=== PATIENT | female | born 1970 | race Caucasian/White ===

== ENCOUNTER 2019-12-18 10:34 | Emergency (ER) | payer BC ==
[2019-12-18 11:57] LABS: Absolute Lymphocytes (CBC) 2.5 K/uL (0.7-4.9); Basophils % 0.9 % (0-1.3); Hematocrit 32.3 % (36.0-45.0); Lymphocytes % 20.3 % (15.3-44.8); MPV 11.2 fL (7.6-11.3); RBC Red Blood Cell Count 3.81 M/uL (3.86-4.86)
[2019-12-18 12:07] LABS: ALT/SGPT 37 U/L (12-78); AST/SGOT 20 U/L (15-37); Albumin 3.1 g/dL (3.4-5.0); Alkaline Phosphatase 110 U/L (45-117); BUN Blood Urea Nitrogen 8 mg/dL (7-18); Bicarbonate 30 mmol/L (21-32); Bilirubin Total 0.4 mg/dL (0.2-1.0); Glucose Level 103 mg/dL (74-106); Potassium 3.6 mmol/L (3.5-5.1); Protein, Total 7.3 g/dL (6.4-8.2); Sodium Level 135 mmol/L (136-145)
--- NOTE | 2019-12-18 12:42 | RAD REPORT ---
EXAM DESCRIPTION: CTSpine Lumbar W/Cont12/18/2019 12:16 pm CLINICAL HISTORY: Back injury with back pain and radiculopathy status post fall from a ladder 7 feet COMPARISON: None TECHNIQUE: Computed axial tomography lumbar spine was obtained with coronal and sagittal reconstruct ion. All CT scans are performed using dose optimization technique as appropriate and may include automated exposure control or mA/KV adjustment according to patient size. FINDINGS: Posterior fusion involves L4 and L5 by pedicular screws united by rods. The alignment of t he lumbar spine. A bone plug has been placed at L5-S1. Laminectomy. Air and fluid is present within the posterior subcutaneous tissues of L5 and S1 it is not entirely in cluded in the field of view as the very posterior soft tissue is not imaged. It measures approximatel y 5 centimeters. Fluid is present within the posterior musculature at this level. It measures approxi mately 4 centimeters and abuts the posterior thecal sac No gross abnormality is seen involving the remainder of the lumbar spine IMPRESSION: Postsurgical changes involving L5 and S1 4 centimeter fluid collection posterior musculature L5 may represent a hematoma or pseudomeningocele. 5 centimeter fluid collection within the posterior subcutaneous tissues containing air may represent hematoma or abscess
--- NOTE | 2019-12-18 12:42 | RAD REPORT ---
EXAM DESCRIPTION: CT - Head Brain Wo Cont - 12/18/2019 12:15 pm CLINICAL HISTORY: Headache COMPARISON: None TECHNIQUE: Computed axial tomography of the head was obtained. IV contrast was not requested. All CT scans are performed using dose optimization technique as appropriate and may include automated exposure control or mA/KV adjustment according to patient size. FINDINGS: An intracranial bleed is not seen . The ventricles are normal in caliber. No extra-axial fluid collection is noted. Fluid within the sinuses/ mastoids is not seen. IMPRESSION: No acute intracranial abnormality is seen. If patient's symptoms persist MRI of the bra in would be recommended.
[2019-12-18] MEDS ORDERED: MORPHINE 4 MG/ML SYR ONE ×2 (12:52→14:43)
--- NOTE | 2019-12-18 14:15 | ER ---
Nurse's Notes [facility] Name: Ariane Hodgson Age: 49 yrs Sex: Female : 1970 Arrival Date: 12/18/2019 Time: 10:38 Bed 13 Private MD: Owen Palma Diagnosis: Low back pain-post surgical pain Presentation: 12/17 10:48 Chief complaint: Patient states: Recent multiple surgeries to back since July. Drained ll1 300 ml of fluid off her spine on Tuesday. Severe back pains, MOSS, stiff neck since Tuesday morning. Arms felt weak when laying down. Coronavirus screen: Client denies travel out of the [place] in the last 14 days. At this time, the client does not indicate any symptoms associated with coronavirus-19. Ebola Screen: Patient denies travel to an Ebola-affected area in the 21 days before illness onset. Initial Sepsis Screen: Does the patient meet any 2 criteria? No. Patient's initial sepsis screen is negative. Does the patient have a suspected source of infection? Yes: Other: back pain, MOSS. Risk Assessment: Do you want to hurt yourself or someone else? Patient reports no desire to harm self or others. Onset of symptoms was December 17, 2019. 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 - Social history:: Smoking status: Patient reports the use of cigarette tobacco products, smokes one-half pack cigarettes per day. Screenin:10 Abuse screen: Denies threats or abuse. Nutritional screening: No deficits noted. vg1 Tuberculosis screening: No symptoms or risk factors identified. Fall Risk No fall in past 12 months (0 pts). No secondary diagnosis (0 pts). IV access (20 points). Ambulatory Aid- None/Bed Rest/Nurse Assist (0 pts). Gait- Weak (10 pts.). Mental Status- Oriented to own ability (0 pts). Total Johnson Fall Scale indicates Low Risk Score (25-44 pts). Fall prevention measures have been instituted. Side Rails Up X 2. Assessment: 11:08 General: Appears uncomfortable, Behavior is calm, cooperative. Pain: Complains of pain vg1 in back of neck and back. Neuro: Level of Consciousness is awake, alert, obeys commands, Oriented to person, place, time, situation. Cardiovascular: Capillary refill < 3 seconds. Respiratory: Airway is patent Respiratory effort is even, unlabored. GI:. Derm: Skin is pink, warm \T\ dry. 12:05 Reassessment: Pt left to CT via bed. vg1 12:24 Reassessment: Pt back from CT. Bed low and locked with call light at side. Pt states vg1 would like something for pain now. Rates pain 10/10. 13:12 Reassessment: Pt states medication did not work. Rates pain 10/10. Patient grimacing vg1 and moving legs due to pain. 14:00 Reassessment: Erlin BLACK at Pt bedside discussing disposition and instructions. vg1 Vital Signs: 10:48 BP 103 / 64; Pulse 85; Resp 18; Temp 97.7(O); Pulse Ox 94% ; Weight 104.33 kg; Height 5 ll1 ft. 4 in. (162.56 cm); Pain 9/10; 12:49 BP 110 / 71; Pulse 76; Pulse Ox 96% on R/A; Pain 10/10; vg1 10:48 Body Mass Index 39.48 (104.33 kg, 162.56 cm) ll1 ED Course: 10:38 Patient arrived in ED. mr 10:39 Owen Palma is Private Physician. mr 10:51 Triage completed. ll1 10:53 Arm band placed on Patient placed in an exam room, on a stretcher. ll1 10:56 Erlin Duque NP is PHCP. pm1 10:56 Alejo Briggs MD is Attending Physician. pm1 11:01 Nuris Collins, SHANTEL is Primary Nurse. sv 11:30 Inserted saline lock: 20 gauge in right antecubital area, using aseptic technique. vg1 11:33 Lactate Sent, Procalcitonin, CMP, CBC with Diff Sent. vg1 11:35 Blood Culture Adult (2) Sent. vg1 12:15 CT Head Brain wo Cont In Process Unspecified. EDMS 12:16 Spine Lumbar W/Cont In Process Unspecified. EDMS 13:31 Patient has correct armband on for positive identification. Bed in low position. Call vg1 light in reach. Side rails up X2. Adult w/ patient. Door closed. Warm blanket given. Pillow given. 14:40 No provider procedures requiring assistance completed. IV discontinued, intact, vg1 bleeding controlled, No redness/swelling at site. Pressure dressing applied. Administered Medications: 13:06 Drug: morphine 4 mg {Note: rass2.} Route: IVP; Site: right antecubital; vg1 13:11 Follow up: Response: No adverse reaction; No change in condition; RASS: Agitated (+2) vg1 Outcome: 14:14 Discharge ordered by MD. pm1 14:45 Discharged to home via wheelchair, with significant other. vg1 14:45 Condition: good 14:45 Discharge instructions given to patient, family, Instructed on discharge instructions, follow up and referral plans. medication usage, Demonstrated understanding of instructions, follow-up care, medications, Prescriptions given X 2. 14:51 Patient left the ED. vg1 Signatures: Dispatcher [employer] EDMS Ewa Samson RN RN sv Rivera, Mary mr Marinas, Patrick, CHIEF CHEMIST CHIEF CHEMIST pm1 Nuris Collins RN RN vg1 Nichole San RN RN ll1 Corrections: (The following items were deleted from the chart) 11:44 11:41 BLOOD CULTURE*+BA.LAB.BRZ drawn and sent. vg1 vg1 11:44 11:42 LACTATE+C.LAB.BRZ drawn and sent. vg1 vg1 11:44 11:42 Procalcitonin+C.LAB.BRZ drawn and sent. vg1 vg1 11:44 11:42 COMPREHENSIVE METABOLIC PANEL+C.LAB.BRZ drawn and sent. vg1 vg1 11:44 11:42 CBC+H.LAB.BRZ drawn and sent. vg1 vg1 11:44 11:42 Inserted saline lock: 20 gauge in right antecubital area, using aseptic vg1 technique. vg1 13:30 12:08 Abuse screen: Denies threats or abuse. vg1 vg1 13:30 12:08 Nutritional screening: No deficits noted. vg1 vg1 13:30 12:08 Tuberculosis screening: No symptoms or risk factors identified. vg1 vg1 13:30 12:08 Fall Risk No fall in past 12 months (0 pts). No secondary diagnosis (0 pts). IV vg1 access (20 points). Ambulatory Aid- None/Bed Rest/Nurse Assist (0 pts). Gait- Weak (10 pts.). Mental Status- Oriented to own ability (0 pts). Total Johnson Fall Scale indicates Low Risk Score (25-44 pts). Fall prevention measures have been instituted. Side Rails Up X 2 vg1
--- NOTE | 2019-12-18 14:15 | EDPHYS ---
Physician Documentation [facility] Name: Ariane Hodgson Age: 49 yrs Sex: Female : 1970 Arrival Date: 12/18/2019 Time: 10:38 Bed 13 Private MD: Owen Palma ED Physician Alejo Briggs HPI: 12/17 11:09 This 49 yrs old Female presents to ER via Wheelchair with complaints of Back pm1 Pain. 11:09 The patient presents with pain Pain. The symptoms are located in the low back. Onset: pm1 The symptoms/episode began/occurred Patient with chronic back pain who has had multiple surgeries to her lower back. On Tuesday she had fluid drained from her back by Dr. Giorgio Tsai. On Tuesday she reported having some neck pain and decreased bilateral arm strength. She was sent to the ER after contacting her doctor today for evaluation. Associated signs and symptoms: Pertinent negatives: fever, incontinence, numbness, tingling. Modifying factors: the patient symptoms are aggravated by movement, walking. Severity of symptoms: in the emergency department the symptoms are actually worse. The patient has been recently seen by a physician: Dr. Giorgio Tsai. 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 - Social history:: Smoking status: Patient reports the use of cigarette tobacco products, smokes one-half pack cigarettes per day. ROS: 11:09 Constitutional: Negative for fever, chills, and weight loss. pm1 11:09 Cardiovascular: Negative for chest pain, palpitations, and edema, Respiratory: Negative for shortness of breath, cough, wheezing, and pleuritic chest pain, Abdomen/GI: Negative for abdominal pain, nausea, vomiting, diarrhea, and constipation. 11:09 MS/Extremity: Negative for injury and deformity, Skin: Negative for injury, rash, and discoloration. 11:09 Neck: Positive for pain with movement. 11:09 Back: Positive for pain at rest, pain with movement, of the lumbar area. 11:09 Neuro: Positive for headache, Weakness to upper bilateral extermities, Negative for numbness, tingling. Exam: 11:09 Constitutional: This is a well developed, well nourished patient who is awake, alert, pm1 and in no acute distress. Head/Face: Normocephalic, atraumatic. 11:09 Neck: External neck: is normal, no tenderness, ROM/movement: no acute changes, Meningeal signs: are not present, Kernig's sign is negative, Brudzinski's sign is negative. 11:09 Cardiovascular: Exam negative for acute changes, Rate: normal, Rhythm: regular, Pulses: no pulse deficits are appreciated, Edema: is not appreciated. 11:09 Respiratory: Exam negative for acute changes, respiratory distress, shortness of breath. 11:09 Abdomen/GI: Inspection: abdomen appears normal, Palpation: abdomen is soft and non-tender, in all quadrants, mass, is not appreciated, rebound tenderness, is not appreciated. 11:09 Back: pain, that is mild, of the lumbar area and sacrum, vertebral tenderness, is appreciated at lumbar spine and sacrum. 11:09 Skin: Appearance: surgical site without any signs of infection or cellulitis. 11:09 Neuro: Exam negative for acute changes, Orientation: is normal, Mentation: is normal, Motor: moves all fours, strength is 5/5 in all extremities, strength is 5/5 in the right hand, left hand, right arm and left arm, Sensation: is normal, no obvious gross deficits. Vital Signs: 10:48 BP 103 / 64; Pulse 85; Resp 18; Temp 97.7(O); Pulse Ox 94% ; Weight 104.33 kg; Height 5 ll1 ft. 4 in. (162.56 cm); Pain 9/10; 12:49 BP 110 / 71; Pulse 76; Pulse Ox 96% on R/A; Pain 10/10; vg1 10:48 Body Mass Index 39.48 (104.33 kg, 162.56 cm) ll1 MDM: 10:56 Patient medically screened. pm1 11:12 ED course: Patient refused pain medications in the ER because she just took hydrocodone pm1 at 1000 today. 13:50 Physician consultation: Giorgio Tsai was called at 13:50, was contacted at 13:50, pm1 regarding consult, patient's condition, and will see patient in office, in 2-3 days, would like medications started, He wanted to rule out stroke and meningitis. I discussed with him the patient presentation, lab findings, and CT scan. I offered to perform a lumbar puncture. He did not want to perform one at this time. He wants to put her on antibiotics and will reevaluate her. he wants Bactrim and gram-negative abx. Will see the patient in two days in his office. . 14:13 Data reviewed: vital signs. Data interpreted: Pulse oximetry: on room air is 96 %. pm1 Interpretation: normal. Counseling: I had a detailed discussion with the patient and/or guardian regarding: the historical points, exam findings, and any diagnostic results supporting the discharge/admit diagnosis, lab results, radiology results, the need for outpatient follow up, to return to the emergency department if symptoms worsen or persist or if there are any questions or concerns that arise at home. 12/17 11:08 Order name: CBC with Diff; Complete Time: 12:07 pm1 12/17 11:08 Order name: CMP; Complete Time: 12:19 pm1 12/17 11:08 Order name: Procalcitonin; Complete Time: 15:39 pm1 12/17 11:08 Order name: Lactate; Complete Time: 12:19 pm1 12/17 11:08 Order name: Blood Culture Adult (2) pm1 12/17 12:40 Order name: CREATININE WHOLE BLOOD; Complete Time: 12:48 EDMS 12/17 11:08 Order name: CT Head Brain wo Cont; Complete Time: 12:48 pm1 12/17 11:08 Order name: IV Saline Lock; Complete Time: 11:41 pm1 12/17 11:15 Order name: Spine Lumbar W/Cont; Complete Time: 12:48 EDMS Administered Medications: 13:06 Drug: morphine 4 mg {Note: rass2.} Route: IVP; Site: right antecubital; vg1 13:11 Follow up: Response: No adverse reaction; No change in condition; RASS: Agitated (+2) vg1 Disposition: 16:44 Co-signature as Attending Physician, Alejo Briggs MD. rn Disposition: 12/18/19 14:14 Discharged to Home. Impression: Low back pain - post surgical pain. - Condition is Stable. - Discharge Instructions: Back Pain, Adult. - Prescriptions for Levaquin 500 mg Oral Tablet - take 1 tablet by ORAL route once daily for 10 days; 10 tablet. Bactrim DS 800- 160 mg Oral Tablet - take 1 tablet by ORAL route every 12 hours for 10 days; 20 tablet. - Medication Reconciliation Form, Thank You Letter, Antibiotic Education, Prescription Opioid Use form. - Follow up: Emergency Department; When: As needed; Reason: Worsening of condition. Follow up: Private Physician; When: 2 - 3 days; Reason: Recheck today's complaints, Continuance of care, Re-evaluation by your physician. - Problem is new. - Symptoms have improved. - Notes: Follow up with Dr. Tsai in his office on Signatures: Dispatcher [employer] EDMS Alejo Briggs, MD AGUIRRE rn Erlin uDque, STATISTICAL SECRETARY STATISTICAL SECRETARY pm1 Nuris Collins RN RN vg1 Nichole San RN RN ll1 Corrections: (The following items were deleted from the chart) 14:15 14:14 12/18/2019 14:14 Discharged to Home. Impression: Low back pain. Condition is pm1 Stable. Forms are Medication Reconciliation Form, Thank You Letter, Antibiotic Education, Prescription Opioid Use. Follow up: Emergency Department; When: As needed; Reason: Worsening of condition. Follow up: Private Physician; When: 2 - 3 days; Reason: Recheck today's complaints, Continuance of care, Re-evaluation by your physician. Problem is new. Symptoms have improved. pm1 14:51 14:15 12/18/2019 14:14 Discharged to Home. Impression: Low back pain - post surgical vg1 pain. Condition is Stable. Forms are Medication Reconciliation Form, Thank You Letter, Antibiotic Education, Prescription Opioid Use. Follow up: Emergency Department; When: As needed; Reason: Worsening of condition. Follow up: Private Physician; When: 2 - 3 days; Reason: Recheck today's complaints, Continuance of care, Re-evaluation by your physician. Problem is new. Symptoms have improved. pm1
[2019-12-18] MEDS ORDERED: SMZ./TMP. 800/160 MG TABLET ONE (14:43)
[2019-12-18] MEDS ORDERED: levoFLOXacin 500 MG TAB ONE (14:43)
[2019-12-18 15:24] VITALS: TEMP 97.7
[2019-12-18 15:25] VITALS: BP 110/71; O2SAT 96
--- OUTSIDE RECORDS SUMMARY | 2019-12-20 13:10 | XMS REPORT | Continuity of Care Document ---
:1970 Author Organization [facility] t Address [facility] [place] [address] Care Team Providers Name Role Phone Mamadou AGUIRRE Primary Care Physician Zach AGUIRRE Attending Clinician Problems This patient has no known problems. Allergies, Adverse Reactions, Alerts Allergy Allergy Status Severity Reaction(s) Onset Inactive Treating Comm ents Source Name Type Date Date Clinician Codeine Propensi Active Rash [facility] to 10-13 nausea Methodi adverse 00:00: st reaction 00 s to drug Penicill Propensi Active Anaphylaxis Throat [place] to 10-13 closes Methodi adverse 00:00: st reaction 00 s to drug Sulfa Propensi Active Rash Daisy (Sulfona ty to 10-13 Methodi mide adverse 00:00: st Antibiot reaction 00 ics) s to drug Family History Family Member Diagnosis Comments Start Date Stop Date Source Natural mother No Known Problems [facility] [employer] Social History Social Habit Start Date Stop Date Quantity Comments Source History of tobacco Cigarette Smoker [facility] Sex Assigned At [facility] Cigarettes smoked 2017-10-13 2017-10-13 [facility] current (pack per 00:00:00 00:00:[address] ) - Reported Cigarette 2017-10-13 2017-10-13 Daisy pack-years 00:00:00 00:00:00 [facility] Tobacco use and 2017-10-13 2017-10-13 Never used Daisy exposure 00:00:00 00:00:00 [facility] Alcohol intake 2017-10-13 2017-10-13 Current Daisy 00:00:00 00:00:00 non-drinker of Church alcohol (finding) Smoking Status Start Date Stop Date Source Current every day smoker 2017-10-13 00:00:00 [facility]a [place] [facility] Medications Ordered Filled Start Stop Current Ordering Indication Dosage Frequency Signature Comments Components Source Medication Medication Date Date Medication? Clinician (SIG) Name Name loratadine Yes 10mg QD Take 10 mg [place] (CLARITIN) 802 by mouth Metho di 10 mg 14:09: daily. st tablet 33 omeprazole Yes 10mg QD Take 10 mg [place] (PriLOSEC) 802 by mouth Metho di 10 MG 14:09: daily. st capsule 32 QUEtiapine Yes 100mg QD Take 100 [place] (SEROquel) 8-02 mg by Methodi 100 MG 14:09: mouth st tablet 32 nightly. meloxicam Yes 15mg QD Take 15 mg [place] (MOBIC) 15 802 by mouth Metho di mg tablet 14:09: daily. st 32 gabapentin Yes 800mg [id number] Take 800 [place] (NEURONTIN) 10-13 [id number] mg by M ethodi 400 mg 14:09: 3D mouth 3 st capsule 32 (three) times a day. Procedures This patient has no known procedures. Plan of Care Planned Activity Planned Date Details Comments Source Future Scheduled 2019-10-13 INFLUENZA VACCINE Leoncio [facility] Test 00:00:00 [code = INFLUENZA VACCINE] Future Scheduled 1993 Screening for [facility] 00:00:00 malignant neoplasm of cervix (procedure) [code = 034471013] Encounters Start End Encounter Admission Attending Care Care Encounter Source Date/Time Date/Time Type Type Clinicians Facility Department ID 2018-10-11 2018-10-11 Refill Zach [facility] [id number] 00:00:00 00:00:00 Yadiel ESPINOZAPEC [id number] I[facility] [id number] [place] [id number] [facility] Results This patient has no known results.
--- OUTSIDE RECORDS SUMMARY | 2019-12-20 13:10 | XMS REPORT | Clinical Summary ---
:1970 Author Organization [facility] Address [address] [place] [address] Care Team Providers Name Role Phone Hossein Cedillo MD Primary Care Provider [phone] Allergies Active Allergy Reactions Severity Noted Date Comments Codeine Rash Low 10/13/2017 Also nausea Penicillins Anaphylaxis High 10/13/2017 Throat closes Sulfa (Sulfonamide Antibiotics) Rash Low 8 Medications Medication Sig Dispensed Refills Start Date End Date Status omeprazole (PriLOSEC) Take 10 mg by 0 Active 10 MG capsule mouth daily. QUEtiapine (SEROquel) Take 100 mg by 0 Active 100 MG tablet mouth nightly. meloxicam (MOBIC) 15 mg Take 15 mg by 0 Active tablet mouth daily. gabapentin (NEURONTIN) Take 800 mg by 0 Active 400 mg capsule mouth 3 (three) times a day. loratadine (CLARITIN) Take 10 mg by 0 Active 10 mg tablet mouth daily. Active Problems Not on file Surgical History Surgery Date Site/Laterality Comments HYSTERECTOMY TUBAL LIGATION LAPAROSCOPIC CHOLECYSTECTOMY Medical History Medical History Date Comments Arrhythmia tachycardia Anxiety Family History Medical History Relation Name Comments No Known Problems Mother Relation Name Status Comments Father Mother Social History Tobacco Use Types Packs/Day Years Used Date Current Every Day Smoker Cigarettes 0.5 30 Smokeless Tobacco: Never Used Alcohol Use Drinks/Week oz/Week Comments No Sex Assigned at Date Recorded Not on file Last Filed Vital Signs Not on file Plan of Treatment Health Maintenance Due Date Last Done Comments CERVICAL CANCER SCREENING 1993 INFLUENZA VACCINE 10/13/2019 Results Not on fileafter 12/18/2018 Advance Directives For more information, please contact: [phone] Type Date Recorded 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
== END 2019-12-18 14:51 | disposition home or self-care (01) ==
LOC: ER 10:34
DX: G89.18 Other acute postprocedural pain (principal); I10 Essential (primary) hypertension; F17.210 Nicotine dependence, cigarettes, uncomplicated; Z88.0 Allergy status to penicillin
CPT/HCPCS: 87040 ×2; 85025; 36415; 82565; 83605; 80053; 84145; 72132; 70450; Q9967; 96374; 99284